=== PATIENT | female | born 1960 | race Two or more races ===

== ENCOUNTER 2021-12-29 06:00 | Day surgery (SDC) | payer OTHER ==
[~2021-12-29 06:00] MED LIST: OMEPRAZ PO; RESTORIL PO; SIMVAST PO; SYNTHROID50 MCG PO; TRAZ PO
== END 2021-12-29 19:30 | disposition home or self-care (01) ==
LOC: CIR.AMB 06:00
PROVIDERS: ATTEND Specialist
DX: K80.10 Calculus of gallbladder with chronic cholecystitis without obstruction (principal); K82.8 Other specified diseases of gallbladder; Z87.891 Personal history of nicotine dependence; E03.9 Hypothyroidism, unspecified; M19.90 Unspecified osteoarthritis, unspecified site; K21.9 Gastro-esophageal reflux disease without esophagitis

== ENCOUNTER 2023-04-19 06:44 | Day surgery (SDC) | payer OTHER ==
[~2023-04-19] VITALS: Ht 162.6 cm; Wt 75.3 kg
== END 2023-04-19 12:35 | disposition home or self-care (01) ==
LOC: CIR.AMB 06:44
PROVIDERS: ATTEND Specialist
DX: L72.0 Epidermal cyst (principal); E03.9 Hypothyroidism, unspecified; Z20.822 Contact with and (suspected) exposure to COVID-19